=== PATIENT | female | born 1940 | race Caucasian/White ===

== ENCOUNTER 2023-07-15 09:47 | Inpatient (IN) | payer MEDICARE, OTHER ==
[2023-07-15] MEDS ORDERED: HYDROcodone/Acetaminophen 5/325 mg Tablet ONE (10:35)
[2023-07-15 10:59] LABS: #Basophils 0.03 10x3/uL (0.0-0.2); #Eosinphils Less than 0.03 10x3/uL (0.0-0.7); %Basophils 0.3 % (0.0-1.0); %Eosinophils 0.2 % (0.0-10.0); %Lymphocytes 7.5 % (21.0-51.0); %Monocytes 3.8 % (0.0-10.0); %Neutrophils 87.8 % (42.0-75.0); Hematocrit 36.7 % (36.0-47.0); Hemoglobin 12.3 g/dL (12.0-16.0); Mean Corpuscular HGB CONC 33.5 g/dL (32.0-36.0); Mean Corpuscular Hemoglobin 31.4 pg (27.0-31.0); Mean Corpuscular Volume 93.6 fL (78.0-98.0); Mean Platelet Volume 9.5 fL (7.4-10.4); Platelet Count 282 10x3/uL (130-400); Red Blood Cell (RBC) Count 3.92 mill/uL (4.20-5.40)
[2023-07-15] MEDS ORDERED: hydrALAZINE 20 MG/ML VIAL SLOW IVP PRN (11:27)
[2023-07-15] MEDS ORDERED: Morphine 2 MG/ML VIAL SLOW IVP PRN (11:27)
[2023-07-15] MEDS ORDERED: Ondansetron PF 4 MG/2 ML Vial IVP PRN (11:27)
[2023-07-15] MEDS ORDERED: Ibuprofen 600 MG TAB PO PRN (11:30)
[2023-07-15] MEDS ORDERED: traMADol HCl 50 MG TAB PO PRN (11:30)
[2023-07-15 11:31] LABS: ALT (SGPT) 15 U/L (8-55); AST (SGOT) 21 U/L (5-34); Albumin 3.6 g/dL (3.4-4.8); Alkaline Phosphatase 95 U/L (40-110); Anion Gap 16 mmol/L (10-20); BUN (Urea Nitrogen) 15 mg/dL (9.8-20.1); Bilirubin, Total 0.4 mg/dL (0.2-1.2); Calc. Creatinine Clearance 0 mL/min (70-130); Calcium 9.5 mg/dL (7.8-10.44); Carbon Dioxide 23 mmol/L (23-31); Chloride 103 mmol/L (98-107); Estimated GFR 79; Globulin 3.3 g/dL (2.4-3.5); Glucose 112 mg/dL (83-110); Potassium 3.7 mmol/L (3.5-5.1); Protein, Total 6.9 g/dL (5.8-8.1); Sodium 138 mmol/L (136-145)
[2023-07-15] MEDS ORDERED: CEFAZOLIN 2 GM in Sodium Chloride 0.9% 100 ML IVPB SCH (11:45)
[2023-07-15] MEDS ORDERED: PROPOFOL 20 ML ONE (13:24)
[2023-07-15] MEDS ORDERED: fentaNYL PF 100 MCG/2 ML SYRINGE ONE (13:24)
[2023-07-15] MEDS ORDERED: Rocuronium Bromide 10 MG/ML (10ML VIAL) ONE (13:25)
[2023-07-15] MEDS ORDERED: Phenylephrine 10 MG/ML VIAL ONE (13:26)
[2023-07-15] MEDS ORDERED: Sodium Chloride 0.9% 100 ML ONE (13:35)
[2023-07-15] MEDS ORDERED: CEFAZOLIN 2 GM VIAL ONE (13:35)
[2023-07-15] MEDS ORDERED: Lidocaine 1% PF 5 ML VIAL ONE (14:07)
[2023-07-15] MEDS ORDERED: Dexamethasone 20 MG/5 ML VIAL ONE (14:07)
[2023-07-15] MEDS ORDERED: Ondansetron PF 4 MG/2 ML Vial ONE (14:07)
[2023-07-15] MEDS ORDERED: fentaNYL 50 mcg/mL 1 mL Vial ONE ×2 (14:57→17:09)
[2023-07-15] MEDS ORDERED: SUGAMMADEX SODIUM 200 MG/2 ML VIAL ONE (15:05)
[2023-07-15] MEDS ORDERED: ePHEDrine Sulfate 50 MG/10 ML VIAL ONE (15:10)
[2023-07-15] MEDS: Ketorolac Tromethamine 30 MG (1 mL) VIAL IVP SCH ×2 (18:35→18:44)
[2023-07-15] MEDS: Acetaminophen 500 MG TAB PO SCH (18:35)
[2023-07-15] MEDS: traMADol HCl 50 MG TAB PO SCH (18:37)
[2023-07-15] MEDS: Sodium Chloride 0.9% 1,000 ML IV SCH (18:40)
[2023-07-15] MEDS: CEFAZOLIN 2 GM in Sodium Chloride 0.9% 100 ML IVPB SCH (21:12)
[2023-07-15] MEDS: Famotidine 20 MG TAB PO SCH (21:12)
[2023-07-15] MEDS: Senokot S 8.6-50 MG TAB PO SCH (21:12)
[2023-07-15 21:18] VITALS: BMI 17.2
[2023-07-16 04:47] LABS: #Basophils Less than 0.03 10x3/uL (0.0-0.2); #Eosinphils Less than 0.03 10x3/uL (0.0-0.7); %Basophils 0.2 % (0.0-1.0); %Lymphocytes 9.6 % (21.0-51.0); %Monocytes 8.2 % (0.0-10.0); %Neutrophils 81.6 % (42.0-75.0); Hemoglobin 9.9 g/dL (12.0-16.0); Mean Corpuscular HGB CONC 31.9 g/dL (32.0-36.0); Mean Corpuscular Hemoglobin 30.6 pg (27.0-31.0); Mean Corpuscular Volume 95.7 fL (78.0-98.0); Mean Platelet Volume 9.5 fL (7.4-10.4); Platelet Count 258 10x3/uL (130-400); RBC Distribution Width 12.1 % (11.5-14.5); Red Blood Cell (RBC) Count 3.24 mill/uL (4.20-5.40)
[2023-07-16 05:03] LABS: Anion Gap 10 mmol/L (10-20); BUN (Urea Nitrogen) 17 mg/dL (9.8-20.1); Calc. Creatinine Clearance 44 mL/min (70-130); Calcium 8.2 mg/dL (7.8-10.44); Carbon Dioxide 25 mmol/L (23-31); Chloride 105 mmol/L (98-107); Estimated GFR 86; Glucose 110 mg/dL (83-110); Potassium 4.3 mmol/L (3.5-5.1); Sodium 136 mmol/L (136-145)
[2023-07-16 05:04] LABS: INR-International Normal Ratio 1.1
[2023-07-16 05:05] LABS: PTT 32.4 sec (22.9-36.1)
[2023-07-16 08:11] VITALS: BP 129/67; TEMP 97.8
[2023-07-16] MEDS: Polyethylene Glycol 3350 17 GM Packet PO SCH (09:08)
== END 2023-07-16 12:40 | disposition home or self-care (01) | DRG 522 ==
LOC: ERS 09:47 → SDC 12:26 → SURG B 17:35
PROVIDERS: ADMIT Orthopaedic Surgery; ATTEND Orthopaedic Surgery
PROC: 0SRS0JZ Replacement of Left Hip Joint, Femoral Surface with Synthetic Substitute, Open Approach (ICD-10-PCS; principal; 2023-07-15)
PROC: 3E033XZ Introduction of Vasopressor into Peripheral Vein, Percutaneous Approach (ICD-10-PCS; 2023-07-15)
DX: S72.002A Fracture of unspecified part of neck of left femur, initial encounter for closed fracture (principal); E78.5 Hyperlipidemia, unspecified; W18.30XA Fall on same level, unspecified, initial encounter; G89.11 Acute pain due to trauma
CPT/HCPCS: 36415; 72170; 80048; 80053; 85025; 85610; 85730; 93005; C1776; G0390; J1100; J1885; J2371; J2405; J2704; J3010; J3490; J7050